=== PATIENT | female | born 1980 | race Caucasian/White ===

== ENCOUNTER 2018-03-06 23:26 | Emergency (ER) | payer SELFPAY ==
[2018-03-06 23:40] VITALS: RESP 18
--- NOTE | 2018-03-07 00:54 | ED PDOC ---
HPI: Allergic Reaction Time Seen by Provider: 03/06/18 23:49 Chief Complaint (Nursing): Allergic Reaction Chief Complaint (Provider): Allergic Reaction History Per: Patient History/Exam Limitations: no limitations Onset/Duration Of Symptoms: Days (x5) Current Symptoms Are (Timing): Still Present Additional Complaint(s): Loretta Pereira is a 37 year old female with no past medical history who is presenting to the ED for possible allergic reaction. Patient states that she has been taking a supplement of caffeine, ephedrine, Ultra-Burn, and sinemet for 5 days. She feels that is having an allergic reaction and complains of tingling in the lips, and difficulty swallowing. Patient denies any rash or other medical complaints. PMD: none provided Past Medical History Reviewed: Historical Data, Nursing Documentation, Vital Signs Vital Signs: Last Vital Signs Temp 97.9 F 03/06/18 23:37 Pulse 92 H 03/06/18 23:37 Resp 18 03/06/18 23:37 BP 146/90 03/06/18 23:37 Pulse Ox 99 03/06/18 23:37 - Medical History PMH: No Chronic Diseases - Surgical History Surgical History: No Surg Hx - Family History Family History: States: Unknown Family Hx - Social History Current smoker - smoking cessation education provided: No Alcohol: None Drugs: Denies - Allergies Allergies/Adverse Reactions: Allergies Allergy/AdvReac Type Severity Reaction Status Date / Time No Known Allergies Allergy Verified 03/07/18 00:03 Review of Systems ROS Statement: Except As Marked, All Systems Reviewed And Found Negative ENT: Positive for: Other (difficulty swallowing, lips tingling ) Skin: Negative for: Rash Physical Exam - Reviewed Nursing Documentation Reviewed: Yes Vital Signs Reviewed: Yes - Physical Exam Appears: Positive for: Well, Non-toxic, No Acute Distress Head Exam: Positive for: ATRAUMATIC, NORMAL INSPECTION, NORMOCEPHALIC Skin: Positive for: Normal Color, Warm, DRY Eye Exam: Positive for: EOMI, Normal appearance, PERRL ENT: Positive for: Normal ENT Inspection Neck: Positive for: Normal, Painless ROM Cardiovascular/Chest: Positive for: Regular Rate, Rhythm. Negative for: Murmur Respiratory: Positive for: Normal Breath Sounds. Negative for: Respiratory Distress Gastrointestinal/Abdominal: Positive for: Normal Exam, Soft. Negative for: Tenderness Back: Positive for: Normal Inspection Extremity: Positive for: Normal ROM. Negative for: Deformity, Swelling Neurologic/Psych: Positive for: Alert, Oriented. Negative for: Motor/Sensory Deficits - ECG O2 Sat by Pulse Oximetry: 99 (RA) Pulse Ox Interpretation: Normal Disposition - Clinical Impression Clinical Impression: Allergic reaction Counseled Patient/Family Regarding: Diagnosis, Need For Followup - Disposition Referrals: [facility] [Outside] Disposition Time: 02:30 Condition: STABLE Instructions: Side Effects From Medicines Forms: [employer] ([place]) Medical Decision Making Medical Decision Making: Time: 00:05 --37 year old female with adverse reaction to medications. --No airway compromise noted and no signs of swelling or rash at this time. --Patient requesting steroids --Will provide steroids and reevaluate 230 Patient reports complete resolution of symptoms, will d/c home. Advised patient to avoid usage of such medications in the future. Scribe Attestation: Documented byYany acting as a scribe for Cristóbal Porter MD. Provider Scribe Attestation: All medical record entries made by the Scribe were at my direction and personally dictated by me. I have reviewed the chart and agree that the record accurately reflects my personal performance of the history, physical exam, medical decision making, and the department course for this patient. I have also personally directed, reviewed, and agree with the discharge instructions and disposition.
[2018-03-07 02:00] VITALS: PULSE 71; TEMP 98
[2018-03-07 02:29] VITALS: BP 138/82
[2018-03-07 04:28] VITALS: O2SAT 99
== END 2018-03-07 02:27 | disposition home or self-care (01) ==
LOC: H.ER 23:26
DX: T78.40XA Allergy, unspecified, initial encounter (principal); R13.10 Dysphagia, unspecified
CPT/HCPCS: 96372; 99283; J2930

== ENCOUNTER 2018-09-18 16:38 | Emergency (ER) | payer MEDICAID ==
[2018-09-18] MEDS ORDERED: Sodium Chloride 0.9% 1,000 ML IV STA (18:27)
[2018-09-18] MEDS ORDERED: DiphenhydrAMINE 50 mg/ml Inj IV STA (18:29)
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
[2018-09-18] MEDS ORDERED: DiphenhydrAMINE 50 mg/ml Inj ONE (19:51)
[2018-09-18 19:52] LABS: BASO # 0.1 K/uL (0.0-0.2); EOS % 0.1 % (0.0-4.0); HEMOGLOBIN 12.3 g/dL (12.0-16.0); LYMPH # 1.3 K/uL (1.0-4.3); LYMPH % 21.7 % (20.0-40.0); MEAN CELL VOLUME 85.2 fl (81.0-99.0); MEAN CORPUSCULAR HEMOGLOBIN 28.1 pg (27.0-31.0); MEAN CORPUSCULAR HGB CONC 32.9 g/dL (33.0-37.0); MEAN PLATELET VOLUME 9.7 fl (7.2-11.7); MONO # 0.8 K/uL (0.0-0.8); MONO % 12.3 % (0.0-10.0); NEUT % 64.9 % (50.0-75.0); NRBC % 0.1 % (0.0-0.0); RBC 4.39 Mil/uL (3.80-5.20); RED CELL DISTRIBUTION WIDTH 16.2 % (11.5-14.5); WHITE BLOOD COUNT 6.1 K/uL (4.8-10.8)
[2018-09-18 19:54] LABS: INR 1.2; PROTHROMBIN TIME 13.8 Seconds (9.8-13.1)
[2018-09-18 19:57] LABS: PARTIAL THROMBOPLASTIN TIME 27.7 Seconds (25.6-37.1)
[2018-09-18 20:01] LABS: ALB/GLOB RATIO 1.1 (1.0-2.1); ALT/SGPT 54 U/L (9-52); AST/SGOT 55 U/L (14-36); BLOOD UREA NITROGEN 9 mg/dl (7-17); CALCIUM 9.1 mg/dL (8.4-10.2); GFR NON-AFRICAN AMERICAN > 60
[2018-09-18 22:09] VITALS: BP 126/78; PULSE 96; RESP 18; TEMP 98.8; O2SAT 99
--- NOTE | 2018-09-19 08:47 | RAD ---
Date of service: 09/18/2018 HISTORY: pain COMPARISON: No prior. TECHNIQUE: Chest PA and lateral FINDINGS: LUNGS: No active pulmonary disease. PLEURA: No significant pleural effusion identified. No pneumothorax apparent. CARDIOVASCULAR: No aortic atherosclerotic calcification present. Normal cardiac size. No pulmonary vascular congestion. OSSEOUS STRUCTURES: No significant abnormalities. VISUALIZED UPPER ABDOMEN: Normal. OTHER FINDINGS: None. IMPRESSION: No acute cardiopulmonary disease appreciated.
--- NOTE | 2018-09-19 13:54 | CARD ---
APPROVED REPORT Date of service: 09/18/2018 EKG Measurement Heart [id number] MD [id number] <Conclusion> Normal sinus rhythm Normal ECG
== END 2018-09-18 22:09 | disposition home or self-care (01) ==
LOC: H.ER 16:38
DX: T78.40XA Allergy, unspecified, initial encounter (principal); J11.1 Influenza due to unidentified influenza virus with other respiratory manifestations; R94.5 Abnormal results of liver function studies
CPT/HCPCS: 71046; 80053; 81025; 84484; 85025; 85610; 85730; 87070; 87430; 87804; 93005; 96361; 96374; 96375; 99283; J1200; J1885; J2930; J7030